=== PATIENT | female | born 1985 | race Caucasian/White ===

== ENCOUNTER 2019-01-07 23:16 | Emergency (ER) | payer SELFPAY ==
[~2019-01-07] VITALS: Ht 182.9 cm; Wt 77.1 kg
[2019-01-08 00:15] VITALS: BP 141/92
[2019-01-08] MEDS ORDERED: SODIUM BICARBONATE 5 ML VIAL ONE (01:09)
[2019-01-08] MEDS ORDERED: LIDOCAINE 1%-EPI 1:100,000 20 ML VIAL ONE (01:09)
[2019-01-08] MEDS ORDERED: ONDANSETRON 4 MG TAB.RAPDIS ONE (01:10)
[2019-01-08] MEDS ORDERED: HYDROMORPHONE INJ 2 MG/ML DISP.SYRIN ONE (01:10)
[2019-01-08] MEDS ORDERED: HYDROMORPHONE INJ 2 MG/ML DISP.SYRIN IM ONE (01:30)
[2019-01-08] MEDS ORDERED: SODIUM BICARBONATE 5 ML VIAL TP ONE (01:30)
[2019-01-08] MEDS ORDERED: CEFTRIAXONE 1 G VIAL IM ONE (01:30)
[2019-01-08] MEDS ORDERED: SULFAMETH/TRIMETH 800/160 MG 1 UDTAB TABLET PO ONE ×2 (01:30→01:54)
[2019-01-08] MEDS ORDERED: ONDANSETRON 4 MG TAB.RAPDIS SL ONE (01:30)
[2019-01-08] MEDS ORDERED: LIDOCAINE 1%-EPI 1:100,000 20 ML VIAL TP ONE (01:30)
[2019-01-08] MEDS ORDERED: CEFTRIAXONE 1 G VIAL ONE (01:54)
--- NOTE | 2019-01-08 02:32 | NUR ---
Patient discharged to home in stable condition. Written and verbal after care instructions given. Patient verbalizes understanding of instruction.
== END 2019-01-08 02:36 | disposition home or self-care (01) ==
LOC: ER 23:25
DX: L02.212 Cutaneous abscess of back [any part, except buttock and flank] (principal); F17.200 Nicotine dependence, unspecified, uncomplicated; Z98.890 Other specified postprocedural states
CPT/HCPCS: 10061; 96372 ×2; 99284; 99406; A6402; A6407; J0696; J1170; J3490 ×2; Q0162